=== PATIENT | male | born 1990 | race Caucasian/White ===

== ENCOUNTER 2017-01-04 04:51 | Emergency (ER) | payer BC ==
[~2017-01-04] VITALS: Ht 167.6 cm; Wt 68.0 kg
[2017-01-04] MEDS ORDERED: BUPIVACAINE 0.5 % PF 150 MG/30 ML VIAL IJ ONE (06:00)
[2017-01-04 07:02] VITALS: BP 120/71
== END 2017-01-04 07:04 | disposition home or self-care (01) ==
LOC: ER 04:53
DX: S60.011A Contusion of right thumb without damage to nail, initial encounter (principal); Z91.011 Allergy to milk products; W23.0XXA Caught, crushed, jammed, or pinched between moving objects, initial encounter; Y93.89 Activity, other specified; Y92.89 Other specified places as the place of occurrence of the external cause; Y99.8 Other external cause status
CPT/HCPCS: 29125; 73140; 99284; A4606; A6402; Z7610